=== PATIENT | male | born 2000 | race Caucasian/White ===

== ENCOUNTER 2023-10-09 09:25 | Emergency (ER) | payer OTHER ==
[~2023-10-09] VITALS: Ht 172.7 cm; Wt 63.5 kg
[2023-10-09] MEDS ORDERED: DIPHTH,PERTUSS(ACELL),TET VAC 0.5 ML VIAL (Tdap) I.M. ONE (09:45)
[2023-10-09 09:47] VITALS: BP_SYST 120; PULSE 80; RESP 16; TEMP 97.7; O2SAT 99
[2023-10-09 10:12] VITALS: BP_SYST 120; PULSE 80; RESP 16; TEMP 97.7; O2SAT 99
== END 2023-10-09 10:16 ==
LOC: SED 09:25
DX: S21.119A Laceration without foreign body of unspecified front wall of thorax without penetration into thoracic cavity, initial encounter (principal); W45.8XXA Other foreign body or object entering through skin, initial encounter; Y93.89 Activity, other specified; Y92.89 Other specified places as the place of occurrence of the external cause; Y99.8 Other external cause status
CPT/HCPCS: 99283